=== PATIENT | female | born 1965 | race Caucasian/White ===

== ENCOUNTER → 2018-04-27 16:06 | Observation (INO) ==
[2018-04-27] MEDS: Nicotine 21 MG PATCH.TD24 TD SCH ×2 (07:27→09:20)
[2018-04-27 09:05] VITALS: BP 109/80
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
[~2018-04-27 16:06] MED LIST: *HR* LORazepam 1 MG TABLET PO PRN; *HR* LORazepam 2 MG/ML VIAL IM PRN; Haloperidol Lactate 5 MG/ML VIAL IM PRN; Ibuprofen 400 MG TABLET PO PRN; MOM Conc 10 ML UD.LIQ PO PRN; Mag Hydrox/Al Hydrox/Simeth 30 ML UDC PO PRN; hydrOXYzine pamoate 25 MG CAPSULE PO PRN; traZODone 50 MG TABLET PO PRN
== END | disposition home or self-care (01) ==
LOC: 1ANU
PROVIDERS: ADMIT Psychiatry & Neurology Forensic Psychiatry; ATTEND Psychiatry & Neurology Forensic Psychiatry

== ENCOUNTER 2019-10-11 15:17 | Inpatient (IN) ==
[2019-10-11 15:52] LABS: Bilirubin,Urine Small (Negative); Blood,Urine Moderate (Negative); Clarity,Urine Clear (Clear); Color,Urine Yellow (Yellow); Glucose,Urine (UA) Normal (Normal); Ketones,Urine 40 mg/dL (Negative); Leukocyte Esterase,Urine Negative (Negative); Nitrite,Urine Negative (Negative); PH,Urine 5.5 pH Units (5.0-8.0); Protein,Urine Negative (Neg-Trace); Specific Gravity,Urine 1.029 (1.010-1.025); Urobilinogen,Urine Normal (Normal)
[2019-10-11 15:53] LABS: Bacteria,Urine None Seen per hpf (None-Few); Hyaline Casts,Urine None Seen per lpf (None-Few); Squamous Epithelial Cell,Urine Many per lpf (None-Few); WBC,Urine 0-3 per hpf (0-3)
[2019-10-11 16:02] LABS: Amphetamine Screen,Urine Positive ng/mL (Cutoff=1000); Barbiturate Screen,Urine Negative ng/mL (Cutoff=200); Benzodiazepines Screen,Urine Negative ng/mL (Cutoff=200); Cannabinoid Screen,Urine Negative ng/mL (Cutoff = 50); Cocaine Screen,Urine Negative ng/mL (Cutoff= 300); Opiate Screen,Urine Negative ng/mL (Cutoff=300); Phencyclidine Screen,Urine Negative ng/mL (Cutoff=25)
[2019-10-11 16:28] LABS: Basophils # 0.1 K/mcL (0.0-0.2); Basophils % 0.9 %; Eosinophils # 0.1 K/mcL (0.0-0.6); Eosinophils % 0.6 %; Hematocrit 42.3 % (35.3-44.9); Hemoglobin 14.6 g/dL (11.5-15.4); Immature Granulocytes % 0.2 % (0-4); Lymphocytes # 3.4 K/mcL (0.6-4.6); Lymphocytes % 33.3 %; Mean Corpuscular HGB Conc 34.5 g/dL (31.6-35.5); Mean Corpuscular Hemoglobin 29.6 pg (28.0-33.3); Mean Corpuscular Volume 85.8 fL (83.0-100.0); Mean Platelet Volume 9.5 fL (9.4-12.4); Monocytes # 0.8 K/mcL (0.0-1.3); Monocytes % 8.2 %; Neutrophils # 5.8 K/mcL (1.6-8.9); Platelet Count 282 K/mcL (140-400); Red Blood Count 4.93 M/mcL (3.82-4.97); Red Cell Distribution Width 13.1 % (11.5-14.5); Segmented Neutrophils % 56.8 %; White Blood Count 10.3 K/mcL (4.3-11.1)
[2019-10-11 16:50] LABS: Acetaminophen < 10 mcg/mL (10-20); BUN/Creatinine Ratio 25 (6-26); Blood Urea Nitrogen 19 mg/dL (6-20); Calcium 9.7 mg/dL (8.6-10.3); Carbon Dioxide 23 mEq/L (23-29); Chloride 102 mEq/L (98-107); Ethanol < 10 mg/dL (Less than 10); Glucose 83 mg/dL (70-105); Osmolality,Calculated 285 (280-300); Potassium 3.6 mEq/L (3.5-5.1); Salicylate < 2.5 mg/dL (15.0-30.0); Sodium 137 mEq/L (136-145); eGFR For African Americans > 60 (> 60); eGFR For Non-African Americans > 60 (> 60)
[2019-10-11] MEDS ORDERED: MOM Conc 10 ML UD.LIQ PO PRN (18:36)
[2019-10-11] MEDS ORDERED: Haloperidol Lactate 5 MG/ML VIAL IM PRN (18:36)
[2019-10-11] MEDS ORDERED: hydrOXYzine pamoate 25 MG CAPSULE PO PRN (18:36)
[2019-10-11] MEDS ORDERED: QUEtiapine Fumarate 25 MG TABLET PO PRN (18:36)
[2019-10-11] MEDS ORDERED: *HR* LORazepam 2 MG/ML VIAL IM PRN (18:36)
[2019-10-11] MEDS ORDERED: *HR* LORazepam 1 MG TABLET PO PRN (18:36)
[2019-10-11] MEDS ORDERED: Mag Hydrox/Al Hydrox/Simeth 30 ML UDC PO PRN (18:36)
[2019-10-11] MEDS ORDERED: Acetaminophen 325 MG TABLET PO PRN (18:36)
[2019-10-11] MEDS: risperiDONE 1 MG TABLET PO SCH (20:58)
[2019-10-12] MEDS: Nicotine 21 MG PATCH.TD24 TD SCH (09:23)
[2019-10-12] MEDS ORDERED: *HR* LORazepam 2 MG/ML VIAL IM PRN (11:10)
[2019-10-12] MEDS ORDERED: *HR* LORazepam 1 MG TABLET PO PRN (11:13)
[2019-10-12] MEDS ORDERED: Fluticasone Propionate Nasal 50 MCG/SPRAY BOTTLE NS PRN (11:28)
[2019-10-12] MEDS: risperiDONE 1 MG TABLET PO SCH (21:00)
[2019-10-13] MEDS: Nicotine 21 MG PATCH.TD24 TD SCH (08:51)
[2019-10-13] MEDS: BuPROPion XL (24 HR) 150 MG TABLET PO SCH (10:57)
[2019-10-13] MEDS: Chlorhexidine Rinse 15 ML MOUTHWASH MM SCH ×2 (13:51→20:33)
[2019-10-13] MEDS: Doxycycline 100 MG CAPSULE PO SCH ×2 (13:51→20:34)
[2019-10-13] MEDS: risperiDONE 1 MG TABLET PO SCH (20:34)
[2019-10-14] MEDS: BuPROPion XL (24 HR) 150 MG TABLET PO SCH (09:44)
[2019-10-14] MEDS: Doxycycline 100 MG CAPSULE PO SCH (09:45)
[2019-10-14] MEDS: Chlorhexidine Rinse 15 ML MOUTHWASH MM SCH (09:45)
[2019-10-14] MEDS: Nicotine 21 MG PATCH.TD24 TD SCH (09:47)
[2019-10-14 10:36] VITALS: BP 109/73
== END 2019-10-14 14:15 | disposition home or self-care (01) | DRG 776 ==
LOC: EMEROOARM 15:17 → 1ANU 18:42
PROVIDERS: ADMIT Psychiatry & Neurology Psychiatry; ATTEND Psychiatry & Neurology Psychiatry

== ENCOUNTER 2019-11-29 21:33 | Observation (INO) ==
[2019-11-30] MEDS ORDERED: Naloxone 0.4 MG/ML INJ IVP PRN (04:40)
[2019-11-30] MEDS ORDERED: Potassium Chloride Elixir 20 MEQ/15 ML UDC PO ONE (04:57)
[2019-11-30] MEDS: 0.9 % Sodium Chloride 1,000 ML IVC SCH ×2 (05:05→13:40)
[2019-11-30] MEDS: Nicotine 21 MG PATCH.TD24 TD SCH (05:06)
[2019-11-30 05:16] LABS: Basophils # 0.1 K/mcL (0.0-0.2); Basophils % 0.8 %; Eosinophils # 0.1 K/mcL (0.0-0.6); Eosinophils % 2.1 %; Hematocrit 36.8 % (35.3-44.9); Hemoglobin 11.8 g/dL (11.5-15.4); Immature Granulocytes % 0.2 % (0-4); Lymphocytes # 2.5 K/mcL (0.6-4.6); Lymphocytes % 40.4 %; Mean Corpuscular HGB Conc 32.1 g/dL (31.6-35.5); Mean Corpuscular Hemoglobin 28.7 pg (28.0-33.3); Mean Corpuscular Volume 89.5 fL (83.0-100.0); Mean Platelet Volume 9.8 fL (9.4-12.4); Monocytes # 0.5 K/mcL (0.0-1.3); Monocytes % 7.7 %; Neutrophils # 3.1 K/mcL (1.6-8.9); Platelet Count 215 K/mcL (140-400); Red Blood Count 4.11 M/mcL (3.82-4.97); Red Cell Distribution Width 13.2 % (11.5-14.5); Segmented Neutrophils % 48.8 %; White Blood Count 6.3 K/mcL (4.3-11.1)
[2019-11-30 05:38] LABS: Alanine Aminotransferase 10 Units/L (7-52); Albumin 3.4 g/dL (3.5-5.7); Albumin/Globulin Ratio 1.7 (1.1-2.2); Alkaline Phosphatase 59 Units/L (34-104); Aspartate Amino Transferase 9 Units/L (13-39); BUN/Creatinine Ratio 20 (6-26); Bilirubin,Total 0.4 mg/dL (0.3-1.0); Blood Urea Nitrogen 14 mg/dL (6-20); Calcium 8.3 mg/dL (8.6-10.3); Carbon Dioxide 22 mEq/L (23-29); Chloride 112 mEq/L (98-107); Glucose 75 mg/dL (70-105); Magnesium 1.8 mg/dL (1.6-2.6); Osmolality,Calculated 289 (280-300); Phosphorous 4.1 mg/dL (2.7-4.5); Potassium 3.6 mEq/L (3.5-5.1); Sodium 140 mEq/L (136-145); Total Protein 5.4 g/dL (6.4-8.9); eGFR For African Americans > 60 (> 60); eGFR For Non-African Americans > 60 (> 60)
[2019-11-30] MEDS ORDERED: hydrOXYzine pamoate 25 MG CAPSULE PO PRN (11:41)
[2019-11-30] MEDS ORDERED: Fluticasone Propionate Nasal 50 MCG/SPRAY BOTTLE NS PRN (11:41)
[2019-11-30] MEDS ORDERED: lisinopriL 10 MG TABLET PO SCH (11:45)
[2019-11-30] MEDS: *HR* Heparin 5,000 UNIT/ML VIAL SQ SCH (17:24)
[2019-11-30] MEDS ORDERED: risperiDONE 1 MG TABLET PO SCH (21:00)
[2019-12-01 02:16] LABS: BUN/Creatinine Ratio 9 (6-26); Blood Urea Nitrogen 7 mg/dL (6-20); Calcium 8.7 mg/dL (8.6-10.3); Carbon Dioxide 24 mEq/L (23-29); Chloride 109 mEq/L (98-107); Glucose 80 mg/dL (70-105); Magnesium 1.8 mg/dL (1.6-2.6); Osmolality,Calculated 289 (280-300); Phosphorous 3.3 mg/dL (2.7-4.5); Potassium 3.7 mEq/L (3.5-5.1); Sodium 141 mEq/L (136-145); eGFR For African Americans > 60 (> 60); eGFR For Non-African Americans > 60 (> 60)
[2019-12-01] MEDS: Nicotine 21 MG PATCH.TD24 TD SCH (05:39)
[2019-12-01] MEDS: *HR* Heparin 5,000 UNIT/ML VIAL SQ SCH (05:40)
[2019-12-01] MEDS ORDERED: Loratadine 10 MG TABLET PO SCH (09:00)
[2019-12-01] MEDS ORDERED: BuPROPion XL (24 HR) 150 MG TABLET PO SCH (09:00)
[2019-12-01 13:32] VITALS: BP 128/80
== END 2019-12-01 11:32 | disposition other institution (70) ==
LOC: 3BNU → SUATTDRO 22:53
PROVIDERS: ADMIT Family Medicine; ATTEND Internal Medicine

== ENCOUNTER 2019-12-01 13:41 | Inpatient (IN) ==
[2019-12-01] MEDS ORDERED: Ibuprofen 400 MG TABLET PO PRN (16:01)
[2019-12-01] MEDS ORDERED: Fluticasone Propionate Nasal 50 MCG/SPRAY BOTTLE NS PRN (16:01)
[2019-12-01] MEDS ORDERED: Haloperidol Lactate 5 MG/ML VIAL IM PRN (16:02)
[2019-12-01] MEDS ORDERED: *HR* LORazepam 1 MG TABLET PO PRN (16:02)
[2019-12-01] MEDS ORDERED: haloperidoL 5 MG TABLET PO PRN (16:02)
[2019-12-01] MEDS ORDERED: Mag Hydrox/Al Hydrox/Simeth 30 ML UDC PO PRN (16:02)
[2019-12-01] MEDS ORDERED: MOM Conc 10 ML UD.LIQ PO PRN (16:02)
[2019-12-01] MEDS ORDERED: *HR* LORazepam 2 MG/ML VIAL IM PRN (16:02)
[2019-12-01] MEDS: hydrOXYzine pamoate 25 MG CAPSULE PO PRN (20:45)
[2019-12-01] MEDS: risperiDONE 1 MG TABLET PO SCH (20:45)
[2019-12-01] MEDS: QUEtiapine Fumarate 25 MG TABLET PO PRN (20:46)
[2019-12-02] MEDS: lisinopriL 10 MG TABLET PO SCH (09:32)
[2019-12-02] MEDS: Nicotine 21 MG PATCH.TD24 TD SCH (09:33)
[2019-12-02] MEDS: ARIPiprazole 5 MG TABLET PO SCH (09:53)
[2019-12-02] MEDS: hydrOXYzine pamoate 25 MG CAPSULE PO PRN ×2 (16:29→21:17)
[2019-12-02] MEDS: QUEtiapine Fumarate 25 MG TABLET PO PRN (21:17)
[2019-12-02] MEDS: risperiDONE 1 MG TABLET PO SCH (21:17)
[2019-12-03 09:14] VITALS: BP 115/70
[2019-12-03] MEDS: lisinopriL 10 MG TABLET PO SCH (10:05)
[2019-12-03] MEDS: ARIPiprazole 5 MG TABLET PO SCH (10:05)
[2019-12-03] MEDS: Nicotine 21 MG PATCH.TD24 TD SCH (10:10)
== END 2019-12-03 10:06 | disposition home or self-care (01) | DRG 751 ==
LOC: 1ANU 13:41
PROVIDERS: ADMIT Psychiatry & Neurology Psychiatry; ATTEND Psychiatry & Neurology Psychiatry

== ENCOUNTER 2020-01-16 21:09 | Inpatient (IN) ==
[2020-01-16] MEDS ORDERED: 0.9 % Sodium Chloride 1,000 ML IVC ONE (21:35)
[2020-01-16 21:41] LABS: Bilirubin,Urine Small (Negative); Blood,Urine Negative (Negative); Clarity,Urine Clear (Clear); Color,Urine Dark Yellow (Yellow); Glucose,Urine (UA) Normal (Normal); Ketones,Urine Negative (Negative); Leukocyte Esterase,Urine Negative (Negative); Nitrite,Urine Negative (Negative); PH,Urine 5.5 pH Units (5.0-8.0); Protein,Urine Trace mg/dL (Neg-Trace); Specific Gravity,Urine > 1.030 (1.010-1.025); Urobilinogen,Urine Normal (Normal)
[2020-01-16 21:47] LABS: Amphetamine Screen,Urine Positive ng/mL (Cutoff=1000); Barbiturate Screen,Urine Negative ng/mL (Cutoff=200); Benzodiazepines Screen,Urine Negative ng/mL (Cutoff=200); Cannabinoid Screen,Urine Negative ng/mL (Cutoff = 50); Cocaine Screen,Urine Negative ng/mL (Cutoff= 300); Opiate Screen,Urine Negative ng/mL (Cutoff=300); Phencyclidine Screen,Urine Negative ng/mL (Cutoff=25)
[2020-01-16 21:56] LABS: Basophils # 0.1 K/mcL (0.0-0.2); Eosinophils # 0.2 K/mcL (0.0-0.6); Eosinophils % 1.5 %; Hematocrit 45.6 % (35.3-44.9); Hemoglobin 14.7 g/dL (11.5-15.4); Immature Granulocytes % 0.2 % (0-4); Lymphocytes # 3.4 K/mcL (0.6-4.6); Lymphocytes % 32.7 %; Mean Corpuscular HGB Conc 32.2 g/dL (31.6-35.5); Mean Corpuscular Hemoglobin 29.1 pg (28.0-33.3); Mean Corpuscular Volume 90.3 fL (83.0-100.0); Mean Platelet Volume 9.3 fL (9.4-12.4); Monocytes # 0.7 K/mcL (0.0-1.3); Monocytes % 6.7 %; Neutrophils # 5.9 K/mcL (1.6-8.9); Platelet Count 302 K/mcL (140-400); Red Blood Count 5.05 M/mcL (3.82-4.97); Red Cell Distribution Width 14.2 % (11.5-14.5); Segmented Neutrophils % 57.9 %; White Blood Count 10.2 K/mcL (4.3-11.1)
[2020-01-16 22:16] LABS: Acetaminophen 18 mcg/mL (10-20); Alanine Aminotransferase 10 Units/L (7-52); Albumin 4.4 g/dL (3.5-5.7); Albumin/Globulin Ratio 1.8 (1.1-2.2); Alkaline Phosphatase 79 Units/L (34-104); Aspartate Amino Transferase 11 Units/L (13-39); BUN/Creatinine Ratio 21 (6-26); Bilirubin,Indirect 0.3 mg/dL (0.0-1.0); Bilirubin,Total 0.3 mg/dL (0.3-1.0); Blood Urea Nitrogen 16 mg/dL (6-20); Calcium 9.1 mg/dL (8.6-10.3); Carbon Dioxide 27 mEq/L (23-29); Chloride 106 mEq/L (98-107); Ethanol < 10 mg/dL (Less than 10); Globulin 2.5 g/dL (2.4-3.5); Glucose 97 mg/dL (70-105); Osmolality,Calculated 289 (280-300); Salicylate < 2.5 mg/dL (15.0-30.0); Sodium 139 mEq/L (136-145); Total Protein 6.9 g/dL (6.4-8.9); eGFR For African Americans > 60 (> 60); eGFR For Non-African Americans > 60 (> 60)
[2020-01-17] MEDS ORDERED: Haloperidol Lactate 5 MG/ML VIAL IM PRN (01:40)
[2020-01-17] MEDS ORDERED: Acetaminophen 325 MG TABLET PO PRN (01:40)
[2020-01-17] MEDS ORDERED: *HR* LORazepam 1 MG TABLET PO PRN (01:40)
[2020-01-17] MEDS ORDERED: *HR* LORazepam 2 MG/ML VIAL IM PRN (01:40)
[2020-01-17] MEDS ORDERED: haloperidoL 5 MG TABLET PO PRN (01:40)
[2020-01-17] MEDS ORDERED: Ibuprofen 400 MG TABLET PO PRN (01:40)
[2020-01-17] MEDS: Nicotine 21 MG PATCH.TD24 TD SCH (09:52)
[2020-01-17] MEDS ORDERED: Fluticasone Propionate Nasal 50 MCG/SPRAY BOTTLE NS PRN (14:13)
[2020-01-17] MEDS: lisinopriL 10 MG TABLET PO SCH (16:11)
[2020-01-17] MEDS: ARIPiprazole 5 MG TABLET PO SCH (16:11)
[2020-01-18] MEDS: ARIPiprazole 5 MG TABLET PO SCH (11:38)
[2020-01-18] MEDS: Nicotine 21 MG PATCH.TD24 TD SCH (11:38)
[2020-01-18] MEDS: lisinopriL 10 MG TABLET PO SCH (15:00)
[2020-01-18] MEDS: QUEtiapine Fumarate 25 MG TABLET PO PRN (20:07)
[2020-01-18] MEDS: hydrOXYzine pamoate 25 MG CAPSULE PO PRN (20:07)
[2020-01-19] MEDS ORDERED: Amoxicillin 500 MG CAPSULE PO SCH
[2020-01-19] MEDS: Amoxicillin 500 MG CAPSULE PO SCH ×3 (06:35→20:57)
[2020-01-19] MEDS: lisinopriL 10 MG TABLET PO SCH (09:04)
[2020-01-19] MEDS: Nicotine 21 MG PATCH.TD24 TD SCH (09:05)
[2020-01-19] MEDS: ARIPiprazole 5 MG TABLET PO SCH (09:05)
[2020-01-19] MEDS: hydrOXYzine pamoate 25 MG CAPSULE PO PRN (20:57)
[2020-01-19] MEDS: QUEtiapine Fumarate 25 MG TABLET PO PRN (20:57)
[2020-01-20] MEDS: Amoxicillin 500 MG CAPSULE PO SCH ×2 (06:34→13:58)
[2020-01-20] MEDS: lisinopriL 10 MG TABLET PO SCH (09:28)
[2020-01-20] MEDS: Nicotine 21 MG PATCH.TD24 TD SCH (09:29)
[2020-01-20] MEDS: ARIPiprazole 5 MG TABLET PO SCH (09:29)
[2020-01-20 10:19] VITALS: BP 114/76
== END 2020-01-20 18:40 | disposition home or self-care (01) | DRG 817 ==
LOC: EMEROOARM 21:09 → 1ANU 21:09 → OBSVTOIN 01-17 01:36 → 1ANU 01-17 02:25
PROVIDERS: ADMIT Psychiatry & Neurology Psychiatry; ATTEND Psychiatry & Neurology Psychiatry

== ENCOUNTER 2020-03-16 15:50 | Inpatient (IN) ==
[2020-03-16 16:24] LABS: Basophils # 0.1 K/mcL (0.0-0.2); Basophils % 0.7 %; Eosinophils # 0.1 K/mcL (0.0-0.6); Eosinophils % 1.3 %; Hematocrit 48.4 % (35.3-44.9); Hemoglobin 15.4 g/dL (11.5-15.4); Immature Granulocytes % 0.3 % (0-4); Lymphocytes # 3.7 K/mcL (0.6-4.6); Lymphocytes % 33.4 %; Mean Corpuscular HGB Conc 31.8 g/dL (31.6-35.5); Mean Corpuscular Hemoglobin 29.3 pg (28.0-33.3); Mean Corpuscular Volume 92.2 fL (83.0-100.0); Mean Platelet Volume 9.6 fL (9.4-12.4); Monocytes # 0.7 K/mcL (0.0-1.3); Monocytes % 5.8 %; Neutrophils # 6.5 K/mcL (1.6-8.9); Platelet Count 290 K/mcL (140-400); Red Blood Count 5.25 M/mcL (3.82-4.97); Red Cell Distribution Width 13.9 % (11.5-14.5); Segmented Neutrophils % 58.5 %; White Blood Count 11.2 K/mcL (4.3-11.1)
[2020-03-16 16:34] LABS: Amphetamine Screen,Urine Negative ng/mL (Cutoff=1000); Barbiturate Screen,Urine Negative ng/mL (Cutoff=200); Benzodiazepines Screen,Urine Negative ng/mL (Cutoff=200); Cannabinoid Screen,Urine Negative ng/mL (Cutoff = 50); Cocaine Screen,Urine Negative ng/mL (Cutoff= 300); Opiate Screen,Urine Negative ng/mL (Cutoff=300); Phencyclidine Screen,Urine Negative ng/mL (Cutoff=25)
[2020-03-16 16:45] LABS: Acetaminophen < 10 mcg/mL (10-20); Alanine Aminotransferase 12 Units/L (7-52); Albumin 4.4 g/dL (3.5-5.7); Albumin/Globulin Ratio 1.5 (1.1-2.2); Alkaline Phosphatase 86 Units/L (34-104); Aspartate Amino Transferase 13 Units/L (13-39); BUN/Creatinine Ratio 17 (6-26); Bilirubin,Direct 0.1 mg/dL (0.0-0.2); Bilirubin,Indirect 0.2 mg/dL (0.0-1.0); Bilirubin,Total 0.3 mg/dL (0.3-1.0); Blood Urea Nitrogen 14 mg/dL (6-20); Calcium 9.8 mg/dL (8.6-10.3); Carbon Dioxide 31 mEq/L (23-29); Chloride 101 mEq/L (98-107); Chol/HDL Ratio 3.4 (0-4.9); Cholesterol 205 mg/dL (< 200); Ethanol < 10 mg/dL (Less than 10); Glucose 110 mg/dL (70-105); HDL Cholesterol 61 mg/dL (40-59); LDL Cholesterol,Calculated 98 mg/dL (< 100); Osmolality,Calculated 289 (280-300); Potassium 3.7 mEq/L (3.5-5.1); Salicylate < 2.5 mg/dL (15.0-30.0); Sodium 139 mEq/L (136-145); Total Protein 7.4 g/dL (6.4-8.9); Triglycerides 229 mg/dL (< 150); eGFR For African Americans > 60 (> 60); eGFR For Non-African Americans > 60 (> 60)
[2020-03-16 16:51] LABS: Estimated Average Glucose 114 mg/dl
[2020-03-16 16:57] LABS: Thyroid Stimulating Hormone 2.039 mcIU/mL (0.340-5.600)
[2020-03-16] MEDS ORDERED: Acetaminophen 325 MG TABLET PO ONE (17:25)
[2020-03-16] MEDS ORDERED: MOM Conc 10 ML UD.LIQ PO PRN (18:15)
[2020-03-16] MEDS ORDERED: *HR* LORazepam 1 MG TABLET PO PRN (18:15)
[2020-03-16] MEDS ORDERED: haloperidoL 5 MG TABLET PO PRN (18:15)
[2020-03-16] MEDS ORDERED: Acetaminophen 325 MG TABLET PO PRN (18:15)
[2020-03-16] MEDS ORDERED: *HR* LORazepam 2 MG/ML VIAL IM PRN (18:15)
[2020-03-16] MEDS ORDERED: Haloperidol Lactate 5 MG/ML VIAL IM PRN (18:15)
[2020-03-16] MEDS: Nicotine 21 MG PATCH.TD24 TD SCH (20:47)
[2020-03-16] MEDS: hydrOXYzine pamoate 25 MG CAPSULE PO PRN (20:47)
[2020-03-16] MEDS: traZODone 50 MG TABLET PO PRN (20:47)
[2020-03-17] MEDS: Nicotine 21 MG PATCH.TD24 TD SCH (10:08)
[2020-03-17] MEDS: hydrOXYzine pamoate 25 MG CAPSULE PO PRN ×3 (10:09→21:15)
[2020-03-17] MEDS: Loratadine 10 MG TABLET PO SCH (16:16)
[2020-03-17] MEDS: lisinopriL 10 MG TABLET PO SCH (16:19)
[2020-03-17] MEDS: Fluticasone Propionate Nasal 50 MCG/SPRAY BOTTLE NS SCH (16:20)
[2020-03-17] MEDS: Vitamin E 200 UNIT (90MG) CAPSULE PO SCH (16:20)
[2020-03-17] MEDS: traZODone 50 MG TABLET PO PRN (21:15)
[2020-03-17] MEDS: ARIPiprazole 5 MG TABLET PO SCH (21:15)
[2020-03-18] MEDS: Fluticasone Propionate Nasal 50 MCG/SPRAY BOTTLE NS SCH (09:04)
[2020-03-18] MEDS: Nicotine 21 MG PATCH.TD24 TD SCH (09:04)
[2020-03-18] MEDS: Loratadine 10 MG TABLET PO SCH (09:05)
[2020-03-18] MEDS: Vitamin E 200 UNIT (90MG) CAPSULE PO SCH (09:05)
[2020-03-18] MEDS: lisinopriL 10 MG TABLET PO SCH (09:05)
[2020-03-18] MEDS: traZODone 50 MG TABLET PO PRN (21:23)
[2020-03-18] MEDS: hydrOXYzine pamoate 25 MG CAPSULE PO PRN (21:23)
[2020-03-18] MEDS: ARIPiprazole 5 MG TABLET PO SCH (21:23)
[2020-03-19 06:18] LABS: Bilirubin,Urine Negative (Negative); Blood,Urine Negative (Negative); Clarity,Urine Clear (Clear); Color,Urine Light-Yellow (Yellow); Glucose,Urine (UA) Normal (Normal); Ketones,Urine Negative (Negative); Leukocyte Esterase,Urine Negative (Negative); Nitrite,Urine Negative (Negative); PH,Urine 5.5 pH Units (5.0-8.0); Protein,Urine Negative (Neg-Trace); Specific Gravity,Urine 1.022 (1.010-1.025); Urobilinogen,Urine Normal (Normal)
[2020-03-19] MEDS: Vitamin E 200 UNIT (90MG) CAPSULE PO SCH (08:58)
[2020-03-19] MEDS: Loratadine 10 MG TABLET PO SCH (08:58)
[2020-03-19] MEDS: lisinopriL 10 MG TABLET PO SCH (08:58)
[2020-03-19] MEDS: Nicotine 21 MG PATCH.TD24 TD SCH (08:59)
[2020-03-19] MEDS: Fluticasone Propionate Nasal 50 MCG/SPRAY BOTTLE NS SCH (09:00)
[2020-03-19] MEDS: traZODone 50 MG TABLET PO PRN (20:39)
[2020-03-19] MEDS: Ibuprofen 400 MG TABLET PO PRN (20:39)
[2020-03-19] MEDS: hydrOXYzine pamoate 25 MG CAPSULE PO PRN (20:39)
[2020-03-19] MEDS: ARIPiprazole 5 MG TABLET PO SCH (20:39)
[2020-03-20] MEDS: Vitamin E 200 UNIT (90MG) CAPSULE PO SCH (09:26)
[2020-03-20] MEDS: Loratadine 10 MG TABLET PO SCH (09:27)
[2020-03-20] MEDS: lisinopriL 10 MG TABLET PO SCH (09:27)
[2020-03-20] MEDS: Nicotine 21 MG PATCH.TD24 TD SCH (09:28)
[2020-03-20] MEDS: Fluticasone Propionate Nasal 50 MCG/SPRAY BOTTLE NS SCH (09:28)
[2020-03-20] MEDS: ARIPiprazole 10 MG TABLET PO SCH (20:49)
[2020-03-20] MEDS: traZODone 50 MG TABLET PO PRN (20:49)
[2020-03-20] MEDS: Ibuprofen 400 MG TABLET PO PRN (20:49)
[2020-03-20] MEDS: hydrOXYzine pamoate 25 MG CAPSULE PO PRN (20:49)
[2020-03-21] MEDS: Vitamin E 200 UNIT (90MG) CAPSULE PO SCH (09:33)
[2020-03-21] MEDS: Loratadine 10 MG TABLET PO SCH (09:33)
[2020-03-21] MEDS: lisinopriL 10 MG TABLET PO SCH (09:33)
[2020-03-21] MEDS: Ibuprofen 400 MG TABLET PO PRN (09:33)
[2020-03-21] MEDS: Nicotine 21 MG PATCH.TD24 TD SCH (09:34)
[2020-03-21] MEDS: Fluticasone Propionate Nasal 50 MCG/SPRAY BOTTLE NS SCH (09:36)
[2020-03-21] MEDS: ARIPiprazole 10 MG TABLET PO SCH (21:16)
[2020-03-21] MEDS: QUEtiapine Fumarate 25 MG TABLET PO PRN (21:16)
[2020-03-21] MEDS: hydrOXYzine pamoate 25 MG CAPSULE PO PRN (21:16)
[2020-03-22] MEDS: lisinopriL 10 MG TABLET PO SCH (09:09)
[2020-03-22] MEDS: Vitamin E 200 UNIT (90MG) CAPSULE PO SCH (09:09)
[2020-03-22] MEDS: Nicotine 21 MG PATCH.TD24 TD SCH (09:10)
[2020-03-22] MEDS: Loratadine 10 MG TABLET PO SCH (09:10)
[2020-03-22] MEDS: Fluticasone Propionate Nasal 50 MCG/SPRAY BOTTLE NS SCH (09:55)
[2020-03-22] MEDS: ARIPiprazole 10 MG TABLET PO SCH (21:21)
[2020-03-22] MEDS: QUEtiapine Fumarate 25 MG TABLET PO PRN (21:21)
[2020-03-22] MEDS: hydrOXYzine pamoate 25 MG CAPSULE PO PRN (21:21)
[2020-03-23] MEDS: Nicotine 21 MG PATCH.TD24 TD SCH (08:45)
[2020-03-23] MEDS: Loratadine 10 MG TABLET PO SCH (08:46)
[2020-03-23] MEDS: lisinopriL 10 MG TABLET PO SCH (08:46)
[2020-03-23] MEDS: Vitamin E 200 UNIT (90MG) CAPSULE PO SCH (08:47)
[2020-03-23] MEDS: Fluticasone Propionate Nasal 50 MCG/SPRAY BOTTLE NS SCH (08:47)
[2020-03-23] MEDS: ARIPiprazole 10 MG TABLET PO SCH (21:41)
[2020-03-23] MEDS: Ibuprofen 400 MG TABLET PO PRN (21:41)
[2020-03-23] MEDS: hydrOXYzine pamoate 25 MG CAPSULE PO PRN (21:42)
[2020-03-23] MEDS: QUEtiapine Fumarate 25 MG TABLET PO PRN (21:42)
[2020-03-23] MEDS: Mag Hydrox/Al Hydrox/Simeth 30 ML UDC PO PRN (21:45)
[2020-03-24] MEDS: Nicotine 21 MG PATCH.TD24 TD SCH (09:33)
[2020-03-24] MEDS: Loratadine 10 MG TABLET PO SCH (09:34)
[2020-03-24] MEDS: Vitamin E 200 UNIT (90MG) CAPSULE PO SCH (09:34)
[2020-03-24] MEDS: lisinopriL 10 MG TABLET PO SCH (09:35)
[2020-03-24] MEDS: Fluticasone Propionate Nasal 50 MCG/SPRAY BOTTLE NS SCH (09:38)
[2020-03-24] MEDS: ARIPiprazole 10 MG TABLET PO SCH (20:48)
[2020-03-24] MEDS: hydrOXYzine pamoate 25 MG CAPSULE PO PRN (20:48)
[2020-03-24] MEDS: Ibuprofen 400 MG TABLET PO PRN (20:48)
[2020-03-24] MEDS: QUEtiapine Fumarate 25 MG TABLET PO PRN (20:48)
[2020-03-24] MEDS: Mag Hydrox/Al Hydrox/Simeth 30 ML UDC PO PRN (20:49)
[2020-03-25] MEDS: Nicotine 21 MG PATCH.TD24 TD SCH (09:12)
[2020-03-25] MEDS: Loratadine 10 MG TABLET PO SCH (09:13)
[2020-03-25] MEDS: Vitamin E 200 UNIT (90MG) CAPSULE PO SCH (09:13)
[2020-03-25] MEDS: lisinopriL 10 MG TABLET PO SCH (09:13)
[2020-03-25] MEDS: Fluticasone Propionate Nasal 50 MCG/SPRAY BOTTLE NS SCH (09:14)
[2020-03-25] MEDS: Mag Hydrox/Al Hydrox/Simeth 30 ML UDC PO PRN (13:41)
[2020-03-25] MEDS: ARIPiprazole 10 MG TABLET PO SCH (20:24)
[2020-03-25] MEDS: QUEtiapine Fumarate 25 MG TABLET PO PRN (20:24)
[2020-03-25] MEDS: hydrOXYzine pamoate 25 MG CAPSULE PO PRN (20:24)
[2020-03-25] MEDS: Ibuprofen 400 MG TABLET PO PRN (20:24)
[2020-03-26] MEDS: Ibuprofen 400 MG TABLET PO PRN (06:09)
[2020-03-26] MEDS: Nicotine 21 MG PATCH.TD24 TD SCH (08:22)
[2020-03-26] MEDS: Vitamin E 200 UNIT (90MG) CAPSULE PO SCH (08:22)
[2020-03-26] MEDS: Loratadine 10 MG TABLET PO SCH (08:22)
[2020-03-26] MEDS: lisinopriL 10 MG TABLET PO SCH (08:22)
[2020-03-26] MEDS: Fluticasone Propionate Nasal 50 MCG/SPRAY BOTTLE NS SCH (08:23)
[2020-03-26 08:58] VITALS: BP 120/73
[2020-03-26] MEDS ORDERED: Cholecalciferol (D-3) 1,000 UNIT (25MCG) TABLET PO SCH (12:00)
[2020-03-26] MEDS ORDERED: QUEtiapine Fumarate 100 MG TABLET PO SCH (21:00)
== END 2020-03-26 17:30 | disposition home or self-care (01) | DRG 751 ==
LOC: EMEROOARM 15:50 → 1ANU 17:59
PROVIDERS: ADMIT Psychiatry & Neurology Psychiatry; ATTEND Psychiatry & Neurology Psychiatry

== ENCOUNTER 2020-05-11 04:44 | Inpatient (IN) ==
[2020-05-11] MEDS ORDERED: Ibuprofen 600 MG TABLET PO ONE (05:04)
[2020-05-11] MEDS ORDERED: MOM Conc 10 ML UD.LIQ PO PRN (05:59)
[2020-05-11] MEDS ORDERED: hydrOXYzine pamoate 25 MG CAPSULE PO PRN (05:59)
[2020-05-11] MEDS ORDERED: Haloperidol Lactate 5 MG/ML VIAL IM PRN (05:59)
[2020-05-11] MEDS ORDERED: QUEtiapine Fumarate 25 MG TABLET PO PRN (05:59)
[2020-05-11] MEDS ORDERED: *HR* LORazepam 2 MG/ML VIAL IM PRN (05:59)
[2020-05-11] MEDS ORDERED: haloperidoL 5 MG TABLET PO PRN (05:59)
[2020-05-11] MEDS ORDERED: Mag Hydrox/Al Hydrox/Simeth 30 ML UDC PO PRN (05:59)
[2020-05-11] MEDS ORDERED: *HR* LORazepam 1 MG TABLET PO PRN (05:59)
[2020-05-11] MEDS ORDERED: Ibuprofen 400 MG TABLET PO PRN (06:00)
[2020-05-11 06:04] LABS: Chol/HDL Ratio 2.9 (0-4.9)
[2020-05-11 10:07] LABS: Estimated Average Glucose 120 mg/dl
[2020-05-11] MEDS: Nicotine 21 MG PATCH.TD24 TD SCH (15:47)
[2020-05-11] MEDS: Cholecalciferol (D-3) 1,000 UNIT (25MCG) TABLET PO SCH (15:48)
[2020-05-11] MEDS: Vitamin E 200 UNIT (90MG) CAPSULE PO SCH (15:48)
[2020-05-11] MEDS: Loratadine 10 MG TABLET PO SCH (15:48)
[2020-05-11] MEDS: Fluticasone Propionate Nasal 50 MCG/SPRAY BOTTLE NS SCH (15:48)
[2020-05-11] MEDS: lisinopriL 10 MG TABLET PO SCH (15:49)
[2020-05-11] MEDS: ARIPiprazole 5 MG TABLET PO SCH (21:55)
[2020-05-12] MEDS: Loratadine 10 MG TABLET PO SCH (09:31)
[2020-05-12] MEDS: Cholecalciferol (D-3) 1,000 UNIT (25MCG) TABLET PO SCH (09:32)
[2020-05-12] MEDS: Vitamin E 200 UNIT (90MG) CAPSULE PO SCH (09:32)
[2020-05-12] MEDS: lisinopriL 10 MG TABLET PO SCH (09:32)
[2020-05-12] MEDS: Nicotine 21 MG PATCH.TD24 TD SCH (09:32)
[2020-05-12] MEDS: Fluticasone Propionate Nasal 50 MCG/SPRAY BOTTLE NS SCH (09:32)
[2020-05-12] MEDS: ARIPiprazole 5 MG TABLET PO SCH (21:27)
[2020-05-13] MEDS: Loratadine 10 MG TABLET PO SCH ×2 (08:59→13:40)
[2020-05-13] MEDS: Nicotine 21 MG PATCH.TD24 TD SCH ×2 (08:59→13:41)
[2020-05-13] MEDS: Fluticasone Propionate Nasal 50 MCG/SPRAY BOTTLE NS SCH (08:59)
[2020-05-13] MEDS: lisinopriL 10 MG TABLET PO SCH ×2 (09:00→13:40)
[2020-05-13] MEDS: Vitamin E 200 UNIT (90MG) CAPSULE PO SCH ×2 (09:00→13:40)
[2020-05-13] MEDS: Cholecalciferol (D-3) 1,000 UNIT (25MCG) TABLET PO SCH ×2 (09:00→13:39)
[2020-05-13] MEDS: ARIPiprazole 5 MG TABLET PO SCH (20:16)
[2020-05-14] MEDS: Vitamin E 200 UNIT (90MG) CAPSULE PO SCH (08:40)
[2020-05-14] MEDS: Cholecalciferol (D-3) 1,000 UNIT (25MCG) TABLET PO SCH (08:40)
[2020-05-14] MEDS: lisinopriL 10 MG TABLET PO SCH (08:40)
[2020-05-14] MEDS: Loratadine 10 MG TABLET PO SCH (08:40)
[2020-05-14] MEDS: Nicotine 21 MG PATCH.TD24 TD SCH (08:41)
[2020-05-14] MEDS: Fluticasone Propionate Nasal 50 MCG/SPRAY BOTTLE NS SCH (08:42)
[2020-05-14] MEDS ORDERED: traZODone 50 MG TABLET PO PRN (19:59)
[2020-05-14] MEDS: ARIPiprazole 5 MG TABLET PO SCH (21:29)
[2020-05-15] MEDS: lisinopriL 10 MG TABLET PO SCH (08:26)
[2020-05-15] MEDS: Cholecalciferol (D-3) 1,000 UNIT (25MCG) TABLET PO SCH (08:27)
[2020-05-15] MEDS: Loratadine 10 MG TABLET PO SCH (08:27)
[2020-05-15] MEDS: Vitamin E 200 UNIT (90MG) CAPSULE PO SCH (08:27)
[2020-05-15] MEDS: Nicotine 21 MG PATCH.TD24 TD SCH (08:28)
[2020-05-15] MEDS: Fluticasone Propionate Nasal 50 MCG/SPRAY BOTTLE NS SCH (08:29)
[2020-05-15 09:24] VITALS: BP 113/75
[2020-05-15] MEDS ORDERED: ARIPiprazole 400 MG SUSER.SYR IM ONE (12:00)
== END 2020-05-15 15:10 | disposition home or self-care (01) | DRG 751 ==
LOC: EMEROOARM 04:44 → SUATTDRO 05:56 → 1ANU 05:56
PROVIDERS: ADMIT Psychiatry & Neurology Psychiatry; ATTEND Psychiatry & Neurology Forensic Psychiatry

== ENCOUNTER 2020-09-21 16:42 | Inpatient (IN) ==
[2020-09-21 17:13] LABS: Bilirubin,Urine Negative (Negative); Blood,Urine Moderate (Negative); Clarity,Urine Clear (Clear); Color,Urine Yellow (Yellow); Glucose,Urine (UA) Normal (Normal); Hyaline Casts,Urine Few per lpf (None Seen); Ketones,Urine Negative (Negative); Leukocyte Esterase,Urine Negative (Negative); Mucus,Urine Few per lpf (None-Few); Nitrite,Urine Negative (Negative); PH,Urine 5.5 pH Units (5.0-8.0); Protein,Urine 30 mg/dL (Neg-Trace); Specific Gravity,Urine > 1.030 (1.010-1.025); Squamous Epithelial Cell,Urine Moderate per hpf (None-Few); WBC,Urine 0-3 per hpf (0-3)
[2020-09-21 17:33] LABS: Basophils # 0.1 K/mcL (0.0-0.2); Basophils % 0.9 %; Eosinophils # 0.1 K/mcL (0.0-0.6); Eosinophils % 1.2 %; Hematocrit 44.7 % (35.3-44.9); Hemoglobin 15.1 g/dL (11.5-15.4); Immature Granulocytes % 0.3 % (0-4); Lymphocytes # 3.6 K/mcL (0.6-4.6); Lymphocytes % 31.8 %; Mean Corpuscular HGB Conc 33.8 g/dL (31.6-35.5); Mean Corpuscular Hemoglobin 29.6 pg (28.0-33.3); Mean Corpuscular Volume 87.6 fL (83.0-100.0); Mean Platelet Volume 9.7 fL (9.4-12.4); Monocytes % 8.8 %; Neutrophils # 6.4 K/mcL (1.6-8.9); Platelet Count 293 K/mcL (140-400); Red Cell Distribution Width 13.4 % (11.5-14.5); White Blood Count 11.2 K/mcL (4.3-11.1)
[2020-09-21 17:46] LABS: Estimated Average Glucose 117 mg/dl; Hemoglobin A1C 5.7 %
[2020-09-21] MEDS ORDERED: *HR* LORazepam 1 MG TABLET PO ONE (17:46)
[2020-09-21 17:50] LABS: Amphetamine Screen,Urine Positive ng/mL (Cutoff=1000); Barbiturate Screen,Urine Negative ng/mL (Cutoff=200); Benzodiazepines Screen,Urine Negative ng/mL (Cutoff=200); Cannabinoid Screen,Urine Negative ng/mL (Cutoff = 50); Cocaine Screen,Urine Negative ng/mL (Cutoff= 300); Opiate Screen,Urine Negative ng/mL (Cutoff=300); Phencyclidine Screen,Urine Negative ng/mL (Cutoff=25)
[2020-09-21 17:51] LABS: Acetaminophen < 10 mcg/mL (10-20); BUN/Creatinine Ratio 21 (6-26); Blood Urea Nitrogen 17 mg/dL (6-20); Calcium 9.4 mg/dL (8.6-10.3); Carbon Dioxide 24 mEq/L (23-29); Chloride 102 mEq/L (98-107); Chol/HDL Ratio 2.9 (0-4.9); Cholesterol 146 mg/dL (< 200); Ethanol < 10 mg/dL (Less than 10); Glucose 108 mg/dL (70-105); HDL Cholesterol 50 mg/dL (40-59); LDL Cholesterol,Calculated 74 mg/dL (< 100); Osmolality,Calculated 284 (280-300); Potassium 3.5 mEq/L (3.5-5.1); Salicylate < 2.5 mg/dL (15.0-30.0); Sodium 136 mEq/L (136-145); Triglycerides 109 mg/dL (< 150); eGFR For African Americans > 60 (> 60); eGFR For Non-African Americans > 60 (> 60)
[2020-09-22] MEDS ORDERED: Haloperidol Lactate 5 MG/ML VIAL IM PRN (12:16)
[2020-09-22] MEDS ORDERED: *HR* LORazepam 2 MG/ML VIAL IM PRN (12:16)
[2020-09-22] MEDS ORDERED: Mag Hydrox/Al Hydrox/Simeth 30 ML UDC PO PRN (12:16)
[2020-09-22] MEDS ORDERED: MOM Conc 10 ML UD.LIQ PO PRN (12:16)
[2020-09-22] MEDS ORDERED: haloperidoL 5 MG TABLET PO PRN (12:16)
[2020-09-22] MEDS ORDERED: Ibuprofen 400 MG TABLET PO PRN (12:16)
[2020-09-22] MEDS ORDERED: *HR* LORazepam 1 MG TABLET PO PRN (12:16)
[2020-09-22] MEDS: hydrOXYzine pamoate 25 MG CAPSULE PO PRN (18:42)
[2020-09-23] MEDS: QUEtiapine Fumarate 25 MG TABLET PO PRN (20:14)
[2020-09-23] MEDS: hydrOXYzine pamoate 25 MG CAPSULE PO PRN (20:14)
[2020-09-23] MEDS ORDERED: ARIPiprazole 5 MG TABLET PO SCH (21:00)
[2020-09-24] MEDS: Fluticasone Propionate Nasal 50 MCG/SPRAY BOTTLE NS SCH (09:51)
[2020-09-24] MEDS: Loratadine 10 MG TABLET PO SCH (09:51)
[2020-09-24] MEDS: lisinopriL 10 MG TABLET PO SCH (09:52)
[2020-09-24] MEDS: risperiDONE 1 MG TABLET PO SCH (20:34)
[2020-09-25] MEDS: Loratadine 10 MG TABLET PO SCH (08:56)
[2020-09-25] MEDS: risperiDONE 1 MG TABLET PO SCH ×2 (08:56→20:07)
[2020-09-25] MEDS: Fluticasone Propionate Nasal 50 MCG/SPRAY BOTTLE NS SCH (08:57)
[2020-09-25] MEDS: lisinopriL 10 MG TABLET PO SCH (08:57)
[2020-09-25] MEDS: hydrOXYzine pamoate 25 MG CAPSULE PO PRN (20:08)
[2020-09-25] MEDS: QUEtiapine Fumarate 25 MG TABLET PO PRN (20:08)
[2020-09-26 08:30] VITALS: BP 128/80
[2020-09-26] MEDS: risperiDONE 1 MG TABLET PO SCH (08:53)
[2020-09-26] MEDS: Fluticasone Propionate Nasal 50 MCG/SPRAY BOTTLE NS SCH (08:53)
[2020-09-26] MEDS: Loratadine 10 MG TABLET PO SCH (08:53)
[2020-09-26] MEDS: lisinopriL 10 MG TABLET PO SCH (08:53)
[2020-09-26] MEDS ORDERED: FLU Vac QV 20-21 (6Month+)/PF 0.5 ML SYRINGE IM ONE (10:05)
== END 2020-09-26 15:20 | disposition home or self-care (01) | DRG 751 ==
LOC: EMEROOARM 16:42 → 1ANU 09-22 12:15 → SUATTDRO 09-22 12:15 → 1ANU 09-22 13:00
PROVIDERS: ADMIT Psychiatry & Neurology Psychiatry; ATTEND Psychiatry & Neurology Psychiatry

== ENCOUNTER 2020-10-28 14:33 | Inpatient (IN) ==
[2020-10-28 14:57] LABS: Hematocrit 49.5 % (35.3-44.9); Hemoglobin 16.4 g/dL (11.5-15.4); Lymphocytes # 4.4 K/mcL (0.6-4.6); Mean Corpuscular HGB Conc 33.1 g/dL (31.6-35.5); Mean Corpuscular Hemoglobin 29.4 pg (28.0-33.3); Mean Corpuscular Volume 88.7 fL (83.0-100.0); Mean Platelet Volume 9.8 fL (9.4-12.4); Neutrophils # 7.1 K/mcL (1.6-8.9); Platelet Count 282 K/mcL (140-400); Red Blood Count 5.58 M/mcL (3.82-4.97); Red Cell Distribution Width 13.4 % (11.5-14.5); White Blood Count 12.3 K/mcL (4.3-11.1)
[2020-10-28 15:05] LABS: Bacteria,Urine Few per hpf (None-Few); Bilirubin,Urine Negative (Negative); Blood,Urine Negative (Negative); Clarity,Urine Turbid (Clear); Color,Urine Yellow (Yellow); Glucose,Urine (UA) Normal (Normal); Hyaline Casts,Urine Few per lpf (None Seen); Ketones,Urine Negative (Negative); Leukocyte Esterase,Urine Trace (Negative); Mucus,Urine Many per lpf (None-Few); Nitrite,Urine Negative (Negative); Protein,Urine 70 mg/dL (Neg-Trace); RBC,Urine 15-30 per hpf (0-3); Specific Gravity,Urine 1.028 (1.010-1.025); Squamous Epithelial Cell,Urine Many per hpf (None-Few)
[2020-10-28 15:11] LABS: Estimated Average Glucose 120 mg/dl; Hemoglobin A1C 5.8 %
[2020-10-28 15:13] LABS: Amphetamine Screen,Urine Negative ng/mL (Cutoff=1000); Barbiturate Screen,Urine Negative ng/mL (Cutoff=200); Benzodiazepines Screen,Urine Negative ng/mL (Cutoff=200); Cannabinoid Screen,Urine Negative ng/mL (Cutoff = 50); Cocaine Screen,Urine Negative ng/mL (Cutoff= 300); Opiate Screen,Urine Negative ng/mL (Cutoff=300); Phencyclidine Screen,Urine Negative ng/mL (Cutoff=25)
[2020-10-28 15:14] LABS: Basophils # 0.3 K/mcL (0.0-0.2); Eosinophils # 0.3 K/mcL (0.0-0.6); Monocytes # 0.3 K/mcL (0.0-1.3); Platelet Estimate Normal (Normal)
[2020-10-28 15:15] LABS: Reactive Lymphocytes Present (Not Present)
[2020-10-28 15:22] LABS: Acetaminophen < 10 mcg/mL (10-20); BUN/Creatinine Ratio 10 (6-26); Blood Urea Nitrogen 10 mg/dL (6-20); Calcium 9.6 mg/dL (8.6-10.3); Carbon Dioxide 28 mEq/L (23-29); Chloride 104 mEq/L (98-107); Chol/HDL Ratio 3.4 (0-4.9); Cholesterol 169 mg/dL (< 200); Ethanol < 10 mg/dL (Less than 10); Glucose 131 mg/dL (70-105); HDL Cholesterol 49 mg/dL (40-59); LDL Cholesterol,Calculated 92 mg/dL (< 100); Osmolality,Calculated 289 (280-300); Potassium 3.7 mEq/L (3.5-5.1); Salicylate < 2.5 mg/dL (15.0-30.0); Sodium 139 mEq/L (136-145); Triglycerides 141 mg/dL (< 150); eGFR For African Americans > 60 (> 60); eGFR For Non-African Americans > 60 (> 60)
[2020-10-28] MEDS ORDERED: lisinopriL 10 MG TABLET PO ONE (17:32)
[2020-10-28] MEDS ORDERED: *HR* LORazepam 2 MG/ML VIAL IM PRN (18:48)
[2020-10-28] MEDS ORDERED: Mag Hydrox/Al Hydrox/Simeth 30 ML UDC PO PRN (18:48)
[2020-10-28] MEDS ORDERED: QUEtiapine Fumarate 25 MG TABLET PO PRN (18:48)
[2020-10-28] MEDS ORDERED: Haloperidol Lactate 5 MG/ML VIAL IM PRN (18:48)
[2020-10-28] MEDS ORDERED: Ibuprofen 400 MG TABLET PO PRN (18:48)
[2020-10-28] MEDS ORDERED: haloperidoL 5 MG TABLET PO PRN (18:48)
[2020-10-28] MEDS ORDERED: MOM Conc 10 ML UD.LIQ PO PRN (18:48)
[2020-10-28] MEDS ORDERED: *HR* LORazepam 1 MG TABLET PO PRN (18:48)
[2020-10-28] MEDS ORDERED: traZODone 50 MG TABLET PO PRN (19:00)
[2020-10-28] MEDS: risperiDONE 1 MG TABLET PO SCH (21:19)
[2020-10-28] MEDS: hydrOXYzine pamoate 25 MG CAPSULE PO PRN (21:28)
[2020-10-29] MEDS: Loratadine 10 MG TABLET PO SCH (09:19)
[2020-10-29] MEDS: risperiDONE 1 MG TABLET PO SCH ×2 (09:19→20:56)
[2020-10-29] MEDS: Nicotine 21 MG PATCH.TD24 TD SCH (09:20)
[2020-10-29] MEDS: hydrOXYzine pamoate 25 MG CAPSULE PO PRN ×2 (09:21→17:13)
[2020-10-29] MEDS: lisinopriL 10 MG TABLET PO SCH (10:52)
[2020-10-29] MEDS ORDERED: traZODone 50 MG TABLET PO PRN (16:18)
[2020-10-29] MEDS: traZODone 50 MG TABLET PO SCH (20:56)
[2020-10-30 02:54] LABS: Bacteria,Urine Few per hpf (None-Few); Bilirubin,Urine Negative (Negative); Blood,Urine Negative (Negative); Calcium Oxalate Crystals,Urine Present; Clarity,Urine Turbid (Clear); Color,Urine Yellow (Yellow); Glucose,Urine (UA) Normal (Normal); Hyaline Casts,Urine Few per lpf (None Seen); Ketones,Urine Negative (Negative); Leukocyte Esterase,Urine Negative (Negative); Mucus,Urine Moderate per lpf (None-Few); Nitrite,Urine Negative (Negative); PH,Urine 5.5 pH Units (5.0-8.0); Protein,Urine 30 mg/dL (Neg-Trace); Specific Gravity,Urine > 1.030 (1.010-1.025); Squamous Epithelial Cell,Urine Moderate per hpf (None-Few)
[2020-10-30] MEDS: Nicotine 21 MG PATCH.TD24 TD SCH (09:55)
[2020-10-30] MEDS: Loratadine 10 MG TABLET PO SCH (09:57)
[2020-10-30] MEDS: risperiDONE 1 MG TABLET PO SCH (09:59)
[2020-10-30] MEDS: BuPROPion SR (12 HR) 100 MG TABLET PO SCH (09:59)
[2020-10-30] MEDS: hydrOXYzine pamoate 25 MG CAPSULE PO PRN ×2 (10:00→20:07)
[2020-10-30] MEDS: lisinopriL 10 MG TABLET PO SCH (10:00)
[2020-10-30] MEDS: traZODone 50 MG TABLET PO SCH (20:07)
[2020-10-30] MEDS ORDERED: risperiDONE 1 MG TABLET PO SCH (21:00)
[2020-10-31] MEDS: Loratadine 10 MG TABLET PO SCH (08:54)
[2020-10-31] MEDS: BuPROPion SR (12 HR) 100 MG TABLET PO SCH (08:54)
[2020-10-31] MEDS: lisinopriL 10 MG TABLET PO SCH (08:54)
[2020-10-31] MEDS: risperiDONE 1 MG TABLET PO SCH (08:55)
[2020-10-31] MEDS: Nicotine 21 MG PATCH.TD24 TD SCH (08:56)
[2020-10-31 09:01] VITALS: BP 124/83
== END 2020-10-31 15:45 | disposition other institution (70) | DRG 751 ==
LOC: EMEROOARM 14:33 → 1ANU 18:43
PROVIDERS: ADMIT Psychiatry & Neurology Forensic Psychiatry; ATTEND Psychiatry & Neurology Forensic Psychiatry

== ENCOUNTER 2022-01-19 12:16 | Observation (INO) ==
[2022-01-20] MEDS ORDERED: haloperidoL 5 MG TABLET PO STA (12:23)
[2022-01-20] MEDS ORDERED: *HR* LORazepam 1 MG TABLET PO ONE (12:23)
[2022-01-20 15:13] LABS: Influenza A PCR Negative (Negative); Influenza B PCR Negative (Negative); Resp. Syncytial Virus PCR Negative (Negative)
[2022-01-20 15:37] LABS: SARS-CoV-2 by PCR (In House) Negative (Negative)
[2022-01-20] MEDS ORDERED: hydrOXYzine pamoate 25 MG CAPSULE PO PRN (16:01)
[2022-01-20] MEDS ORDERED: Ibuprofen 400 MG TABLET PO PRN (16:01)
[2022-01-20] MEDS ORDERED: *HR* LORazepam 1 MG TABLET PO PRN (16:01)
[2022-01-20] MEDS ORDERED: *HR* LORazepam 2 MG/ML VIAL IM PRN (16:01)
[2022-01-20] MEDS ORDERED: Haloperidol Lactate 5 MG/ML VIAL IM PRN (16:01)
[2022-01-20] MEDS ORDERED: QUEtiapine Fumarate 25 MG TABLET PO PRN (16:01)
[2022-01-20] MEDS ORDERED: haloperidoL 5 MG TABLET PO PRN (16:01)
[2022-01-20] MEDS ORDERED: Nicotine 2 MG GUM BC PRN (17:49)
[2022-01-20 19:45] VITALS: O2SAT 97
[2022-01-21 10:38] VITALS: BP 110/73; PULSE 82; TEMP 97.5
== END 2022-01-21 16:15 | disposition home or self-care (01) ==
LOC: EMEROOARM 12:16 → INTOOBSV 01-20 15:59 → 1ANU 01-20 15:59
PROVIDERS: ADMIT Psychiatry & Neurology Neurology; ATTEND Psychiatry & Neurology Neurology